=== PATIENT | male | born 1960 | race Caucasian/White ===

== ENCOUNTER 2018-08-01 09:02 | Emergency (ER) | payer BC, OTHER ==
[2018-08-01 09:08] VITALS: BP 148/90
--- NOTE | 2018-08-01 10:10 | UC ---
Skin Complaint HPI - HPI Summary HPI Summary: R handed. Noticed a splinter in nail bed R index, lily for a living. It has caused pain and tenderness in area. denies joint swelling of finger or fever. - History of Current Complaint Chief Complaint: UCGeneralIllness Time Seen by Provider: 08/01/18 09:48 Stated Complaint: SOFT TISSUE Hx Obtained From: Patient Onset/Duration: Sudden Onset Skin Exposure Onset/Duration: Weeks Ago Timing: Constant Onset Severity: Mild Current Severity: Mild Pain Intensity: 6 Pain Scale Used: 0-10 Numeric Location: Discrete Character: Pain Aggravating Factor(s): Touch Alleviating Factor(s): Nothing Associated Signs & Symptoms: Positive: Negative Related History: Foreign Body - was working w/ his hands on wood piece - Allergy/Home Medications Allergies/Adverse Reactions: Allergies Allergy/AdvReac Type Severity Reaction Status Date / Time No Known Allergies Allergy Verified 08/01/18 09:09 Review of Systems All Other Systems Reviewed And Are Negative: Yes Constitutional: Positive: Negative Skin: Positive: Other - R index under nail: splinter Musculoskeletal: Positive: Negative Is Patient Immunocompromised?: No PMH/Surg Hx/FS Hx/Imm Hx Previously Healthy: Yes - Surgical History Surgical History: None - Social History Alcohol Use: Daily Substance Use Type: None Smoking Status (MU): Current Some Day Smoker Physical Exam Triage Information Reviewed: Yes Appearance: Well-Appearing Vital Signs: Initial Vital Signs Temp 98.4 F 08/01/18 09:06 Pulse 80 08/01/18 09:06 Resp 18 08/01/18 09:06 BP 148/90 08/01/18 09:06 Pulse Ox 100 08/01/18 09:06 Vital Signs Reviewed: Yes Musculoskeletal: Positive: Strength Intact - R hand, ROM Intact - R hand, No Edema - R hand Skin: Positive: Other - splinter in R index under nail, removed w/ no issues Course/Dx - Course Course Of Treatment: R index splinter removed during visit. no other signs of infection. advised warm water soaks. return if new redness or swellign noted. - Differential Diagnoses - Skin Complaint Differential Diagnoses: Abscess, Foreign Body, Other - paronychia - Diagnoses Provider Diagnoses: Splinter R index; removed Discharge - Sign-Out/Discharge Documenting (check all that apply): Patient Departure All imaging exams completed and their final reports reviewed: No Studies - Discharge Plan Condition: Good Disposition: HOME Patient Education Materials: Soft Tissue Foreign Body (ED) Referrals: Kaya Wiggins MD [Primary Care Provider] - Additional Instructions: We offered tetanus but please make sure you are up to date from your pcp. Return if there is worsening pain, swelling of finger, or fever. - Billing Disposition and Condition Condition: GOOD Disposition: Home
== END 2018-08-01 10:12 | disposition home or self-care (01) ==
LOC: UCEAST 09:02
DX: S60.450A Superficial foreign body of right index finger, initial encounter (principal); X58.XXXA Exposure to other specified factors, initial encounter; Y92.9 Unspecified place or not applicable; F17.210 Nicotine dependence, cigarettes, uncomplicated
CPT/HCPCS: 99211; G0463